=== PATIENT | male | born 1960 | race Caucasian/White ===

== ENCOUNTER 2024-10-05 10:39 | Emergency (ER) | payer OTHER, MEDICAID ==
[~2024-10-05] VITALS: Ht 175.2 cm; Wt 83.9 kg
[~2024-10-05 10:39] MED LIST: ANAPROX DS550 MG PO; CLARITIN10 MG PO; LEVAQUIN500 M2 PO; LISINOPRIL10 M1 PO; MEDROL DOSEPAK4 MG PO; NKHM; PREDNISONE10 MG PO; ROBITUSSIN DM 101 OZ PO; TAMIFLU 75MG CA75 MG PO
[2024-10-05 10:57] VITALS: BP 140/101
[2024-10-05 11:34] LABS: BASO # 0.1 10*3/uL (0.0-0.1); BASO % 0.5 % (0.0-1.0); EOS # 0.3 10*3/uL (0.0-0.4); EOS % 2.6 % (1.0-4.0); HEMATOCRIT 42.5 % (42.0-52.0); MEAN CORPUSCULAR HGB 28.7 pg (27.0-31.0); MEAN CORPUSCULAR HGB CONC 33.4 g/dl (33.0-37.0); MONO % 10.2 % (3.0-9.0); NEUT # 7.7 10*3/uL (2.3-7.9); NEUT % 75.4 % (47.0-73.0); PLATELET COUNT AUTOMATED 307 10*3/uL (130-400); RED BLOOD COUNT 4.94 10*6/uL (4.50-5.90); RED CELL DISTRI WIDTH 12.5 % (0-14.5); WHITE BLOOD COUNT 10.2 10*3/uL (4.8-10.8)
[2024-10-05 11:59] LABS: BUN 11 mg/dl (9-23); CHLORIDE 102 mmol/L (98-107)
[2024-10-05] MEDS ORDERED: VIBRAMYCIN100 MG PO (12:25)
[2024-10-05] MEDS ORDERED: PREDNISONE20 M1 PO (12:25)
[2024-10-05] MEDS ORDERED: Doxycycline Hyclate 100 MG CAP PO ONE (12:30)
[2024-10-05] MEDS ORDERED: methylPREDNISolone sod succ 125 MG VIAL IM ONE (12:30)
== END 2024-10-05 13:00 | disposition home or self-care (01) ==
LOC: ED 10:39
PROVIDERS: Nurse Practitioner Family
DX: T63.301A Toxic effect of unspecified spider venom, accidental (unintentional), initial encounter (principal); J45.909 Unspecified asthma, uncomplicated; Z20.822 Contact with and (suspected) exposure to COVID-19; Z98.890 Other specified postprocedural states; Y92.89 Other specified places as the place of occurrence of the external cause

== ENCOUNTER → 2024-12-07 | Outpatient (CLI) | payer OTHER ==
[~2024-12-07] MED LIST changes: +PREDNISONE20 M1 PO; +VIBRAMYCIN100 MG PO
== END | disposition home or self-care (01) ==
LOC: US 10:14
PROVIDERS: ATTEND Nurse Practitioner Family
DX: E04.2 Nontoxic multinodular goiter (principal)

== ENCOUNTER 2025-06-30 12:01 | Emergency (ER) | payer OTHER, MEDICAID ==
[~2025-06-30] VITALS: Ht 175.2 cm; Wt 82.1 kg
[2025-06-30 12:22] LABS: BASO # 0.0 10*3/uL (0.0-0.1); BASO % 0.6 % (0.0-1.0); EOS # 0.1 10*3/uL (0.0-0.4); EOS % 1.4 % (1.0-4.0); MEAN CELL VOLUME 86.4 fl (80.0-94.0); MEAN CORPUSCULAR HGB 28.4 pg (27.0-31.0); MEAN PLATELET VOLUME 9.8 fl (9.6-12.3); MONO # 0.5 10*3/uL (0.1-1.0); MONO % 7.8 % (3.0-9.0); NEUT # 4.7 10*3/uL (2.3-7.9); NEUT % 71.2 % (47.0-73.0); NUCLEATED RED BLOOD CELL 0.0 % (0.0-0.0); NUCLEATED RED BLOOD CELL 0.0 10*3/uL (0.0-0.0); PLATELET COUNT AUTOMATED 211 10*3/uL (130-400); RED CELL DISTRI WIDTH 13.3 % (0-14.5)
[2025-06-30 12:32] LABS: ACT PARTIAL THROMBO TIME 26.2 SECONDS (20.0-32.1)
[2025-06-30 12:43] LABS: BUN 10 mg/dl (9-23)
[2025-06-30] MEDS ORDERED: Dexamethasone Sodium Phospha 20 MG/5 ML VIAL IM ONE (14:35)
[2025-06-30 15:22] VITALS: BP 160/85
[2025-06-30] MEDS ORDERED: TRAMADOL HCL50 MG PO (16:12)
== END 2025-06-30 16:44 | disposition home or self-care (01) ==
LOC: ED 12:01
PROVIDERS: Internal Medicine
DX: M25.512 Pain in left shoulder (principal); R07.89 Other chest pain; R20.0 Anesthesia of skin; J45.909 Unspecified asthma, uncomplicated; Z79.899 Other long term (current) drug therapy; Z98.890 Other specified postprocedural states